=== PATIENT | female | born 1955 | race Asian ===

== ENCOUNTER 2017-02-18 12:58 | Emergency (ER) | payer OTHER ==
[~2017-02-18] VITALS: Ht 160 cm; Wt 69.0 kg
[2017-02-18 13:04] VITALS: BP 106/70
[2017-02-18 13:54] LABS: MEAN CORPUSCULAR HEMOGLOBIN 30.6 pg (27.0-34.8); MEAN CORPUSCULAR HGB CONC 33.7 g/dL (32.4-35.8); MEAN CORPUSCULAR VOLUME 90.8 fL (80-100); MEAN PLATELET VOLUME 7.2 fL (7.4-10.4); PLATELET COUNT 221 x10^3/uL (130-400); RED BLOOD COUNT 3.88 x10^6/uL (3.82-5.3); RED CELL DISTRIBUTION WIDTH 14.9 % (9.6-15.2)
[2017-02-18] MEDS ORDERED: ONDANSETRON ODT 4 MG PO ONE (14:00)
[2017-02-18 14:04] LABS: ALBUMIN 3.6 g/dL (3.4-5.0); ANION GAP 9 mmol/L (5-15); CALCIUM 8.3 mg/dL (8.5-10.1); CHLORIDE 103 mmol/L (98-107); CREATININE 0.67 mg/dL (0.55-1.02)
[2017-02-18 14:25] LABS: MD YES
[2017-02-18 14:26] LABS: BAND#(MANUAL) 0.78 x10^3/uL; BANDS%(MANUAL) 8 % (0-7); LYMPH#(MANUAL) 0.59 x10^3/uL (1-3.4); LYMPHS% (MANUAL) 6 % (22-44); MONOS% (MANUAL) 1 % (2-9); SEG#(MANUAL) 8.33 x10^3/uL (1.8-6.8); SEGS% (MANUAL) 85 % (42-75)
[2017-02-18 14:27] LABS: <PLATELET ESTIMATE> ADEQUATE; <PLT MORPHOLOGY> NORMAL PLT MORPH; <RBC MORPHOLOGY> NORMAL
[2017-02-18] MEDS ORDERED: CEFAZOLIN 1,000 MG ONE (15:48)
[2017-02-18] MEDS ORDERED: LIDOCAINE 1%, 10ML ONE (15:48)
[2017-02-18] MEDS ORDERED: SULFAMETH./TRIMETHOPRIM DS 800MG/160MG TABLET ONE (15:49)
[2017-02-18] MEDS ORDERED: IBUPROFEN 200 MG TABLET ONE (15:49)
[2017-02-18] MEDS ORDERED: ONDANSETRON ODT 4 MG ONE (15:49)
[2017-02-18] MEDS ORDERED: SULFAMETH./TRIMETHOPRIM DS 800MG/160MG TABLET PO ONE (16:00)
[2017-02-18] MEDS ORDERED: CEFAZOLIN 1,000 MG IM ONE (16:00)
[2017-02-18] MEDS ORDERED: IBUPROFEN 200 MG TABLET PO ONE (16:00)
== END 2017-02-18 16:43 | disposition home or self-care (01) ==
LOC: ED 16:41
DX: L03.116 Cellulitis of left lower limb (principal)
CPT/HCPCS: 36415; 73590; 80048; 82040; 85025; 93971; 96372; 99285; J0690; Q0162

== ENCOUNTER 2017-02-20 20:51 | Inpatient (IN) | payer OTHER ==
[~2017-02-20] VITALS: Ht 157.5 cm; Wt 62.1 kg
[2017-02-20] MEDS ORDERED: KETOROLAC 30 MG/1 ML ONE (21:48)
[2017-02-20] MEDS ORDERED: ONDANSETRON 2MG/ML, 2ML ONE (21:48)
[2017-02-20] MEDS ORDERED: SODIUM CHLORIDE 0.9% 1,000ML IVBOLUS ONE (22:00)
[2017-02-20] MEDS ORDERED: AMPICILLIN/SULBACTAM 3 GM in SODIUM CHLORIDE 0.9% 100 ML IV ONE (22:00)
[2017-02-20] MEDS ORDERED: KETOROLAC 30 MG/1 ML IVPush ONE (22:00)
[2017-02-20] MEDS ORDERED: SODIUM CHLORIDE FLUSH 10ML SYR IVF ONE (22:00)
[2017-02-20] MEDS ORDERED: ONDANSETRON 2MG/ML, 2ML IVPush ONE (22:00)
[2017-02-20 22:12] LABS: BASOPHILS # (AUTO) 0.02 x10^3/uL (0-0.1); BASOPHILS % (AUTO) 0 % (0-1); EOSINOPHILS % (AUTO) 0 % (1-7); LYMPHOCYTES # (AUTO) 1.05 x10^3/uL (1-3.4); LYMPHOCYTES % (AUTO) 7 % (22-44); MD NO; MEAN CORPUSCULAR HEMOGLOBIN 30.4 pg (27.0-34.8); MEAN CORPUSCULAR HGB CONC 33.5 g/dL (32.4-35.8); MEAN CORPUSCULAR VOLUME 90.8 fL (80-100); MEAN PLATELET VOLUME 7.2 fL (7.4-10.4); MONOCYTES % (AUTO) 3 % (2-9); NEUTROPHILS # (AUTO) 12.93 x10^3/uL (1.8-6.8); NEUTROPHILS % (AUTO) 90 % (42-75); PLATELET COUNT 202 x10^3/uL (130-400); RED BLOOD COUNT 3.85 x10^6/uL (3.82-5.3); RED CELL DISTRIBUTION WIDTH 15.5 % (9.6-15.2)
[2017-02-20 22:19] LABS: INTERNATIONAL NORMALIZED RATIO 0.94 (0.93-1.1); PROTHROMBIN TIME 9.8 Seconds (9.6-11.5)
[2017-02-20 22:25] LABS: ALBUMIN 2.3 g/dL (3.4-5.0); ANION GAP 10 mmol/L (5-15); CALCIUM 8.1 mg/dL (8.5-10.1); CHLORIDE 98 mmol/L (98-107)
[2017-02-20 22:28] LABS: ALANINE AMINOTRANSFERASE 21 U/L (12-78); ALKALINE PHOSPHATASE 66 U/L (45-117); BILIRUBIN,TOTAL 0.9 mg/dL (0.2-1.0); CREATININE 0.69 mg/dL (0.55-1.02); TOTAL PROTEIN 6.9 g/dL (6.4-8.2)
[2017-02-21] MEDS ORDERED: DOCUSATE 100 MG CAPSULE PO PRN
[2017-02-21] MEDS ORDERED: hydrALAzine 20 MG/ML, 1ML IVPush PRN
[2017-02-21] MEDS ORDERED: TEMAZEPAM 15 MG CAPSULE PO PRN
[2017-02-21] MEDS: SODIUM CHLORIDE 0.9% 1,000 ML IV SCH ×3 (01:26→19:59)
[2017-02-21] MEDS: ACETAMINOPHEN 325 MG TABLET PO PRN ×2 (01:31→19:53)
[2017-02-21 01:38] VITALS: BP 92/54
[2017-02-21] MEDS: ENOXAPARIN 40 MG/0.4 ML SQ SCH (01:50)
[2017-02-21 02:39] LABS: RAPID INFLUENZA A Negative (Negative); RAPID INFLUENZA B Negative (Negative)
[2017-02-21 05:14] LABS: MEAN CORPUSCULAR HEMOGLOBIN 30.8 pg (27.0-34.8); MEAN CORPUSCULAR HGB CONC 33.4 g/dL (32.4-35.8); MEAN CORPUSCULAR VOLUME 92.2 fL (80-100); MEAN PLATELET VOLUME 7.6 fL (7.4-10.4); PLATELET COUNT 186 x10^3/uL (130-400); RED BLOOD COUNT 3.42 x10^6/uL (3.82-5.3); RED CELL DISTRIBUTION WIDTH 15.3 % (9.6-15.2)
[2017-02-21 05:18] LABS: ANION GAP 7 mmol/L (5-15); CALCIUM 7.5 mg/dL (8.5-10.1); CHLORIDE 103 mmol/L (98-107)
[2017-02-21 05:19] LABS: CREATININE 0.81 mg/dL (0.55-1.02)
[2017-02-21 05:40] LABS: BASOPHILS # (AUTO) 0.01 x10^3/uL (0-0.1); BASOPHILS % (AUTO) 0 % (0-1); EOSINOPHILS # (AUTO) 0.02 x10^3/uL (0-0.4); EOSINOPHILS % (AUTO) 0 % (1-7); LYMPHOCYTES # (AUTO) 1.02 x10^3/uL (1-3.4); LYMPHOCYTES % (AUTO) 9 % (22-44); MD SCAN; MONOCYTES # (AUTO) 0.39 x10^3/uL (0.2-0.8); MONOCYTES % (AUTO) 3 % (2-9); NEUTROPHILS # (AUTO) 10.57 x10^3/uL (1.8-6.8); NEUTROPHILS % (AUTO) 88 % (42-75)
[2017-02-21] MEDS: AMPICILLIN/SULBACTAM 3 GM in SODIUM CHLORIDE 0.9% 100 ML IV SCH ×3 (06:16→22:55)
[2017-02-21] MEDS: KETOROLAC 30 MG/1 ML IVPush PRN ×2 (06:22→23:01)
[2017-02-21 09:14] VITALS: BP 92/59
[2017-02-21 13:21] VITALS: BP 94/60
[2017-02-21] MEDS ORDERED: MAGNESIUM HYDROXIDE 8%, 30ML UDC ONE (15:46)
[2017-02-21] MEDS: MAGNESIUM HYDROXIDE 8%, 30ML UDC PO PRN (15:49)
[2017-02-21] MEDS: ONDANSETRON ODT 4 MG PO PRN (16:30)
[2017-02-21 19:00] VITALS: BP 112/67
[2017-02-22] MEDS: SODIUM CHLORIDE 0.9% 1,000 ML IV SCH ×2 (00:17→05:04)
[2017-02-22] MEDS: ENOXAPARIN 40 MG/0.4 ML SQ SCH (00:59)
[2017-02-22 02:17] VITALS: BP 97/62
[2017-02-22] MEDS: KETOROLAC 30 MG/1 ML IVPush PRN ×2 (05:09→21:27)
[2017-02-22 05:28] LABS: CALCIUM 7.2 mg/dL (8.5-10.1); CHLORIDE 104 mmol/L (98-107)
[2017-02-22 05:31] LABS: ANION GAP 7 mmol/L (5-15); CREATININE 0.52 mg/dL (0.55-1.02)
[2017-02-22 05:35] LABS: MEAN CORPUSCULAR HEMOGLOBIN 30.9 pg (27.0-34.8); MEAN CORPUSCULAR HGB CONC 34.1 g/dL (32.4-35.8); MEAN CORPUSCULAR VOLUME 90.4 fL (80-100); MEAN PLATELET VOLUME 7.7 fL (7.4-10.4); PLATELET COUNT 167 x10^3/uL (130-400); RED BLOOD COUNT 3.21 x10^6/uL (3.82-5.3); RED CELL DISTRIBUTION WIDTH 15.3 % (9.6-15.2)
[2017-02-22 06:30] LABS: BASOPHILS # (AUTO) 0.01 x10^3/uL (0-0.1); BASOPHILS % (AUTO) 0 % (0-1); EOSINOPHILS # (AUTO) 0.09 x10^3/uL (0-0.4); EOSINOPHILS % (AUTO) 1 % (1-7); LYMPHOCYTES # (AUTO) 1.35 x10^3/uL (1-3.4); LYMPHOCYTES % (AUTO) 14 % (22-44); MD SCAN; MONOCYTES # (AUTO) 0.56 x10^3/uL (0.2-0.8); MONOCYTES % (AUTO) 6 % (2-9); NEUTROPHILS # (AUTO) 7.49 x10^3/uL (1.8-6.8); NEUTROPHILS % (AUTO) 79 % (42-75)
[2017-02-22] MEDS: AMPICILLIN/SULBACTAM 3 GM in SODIUM CHLORIDE 0.9% 100 ML IV SCH ×3 (07:35→22:23)
[2017-02-22 08:45] VITALS: BP 95/60
[2017-02-22] MEDS: ONDANSETRON ODT 4 MG PO PRN (10:18)
[2017-02-22] MEDS ORDERED: BISACODYL 10 MG SUPP PR ONE (11:00)
[2017-02-22] MEDS: DOCUSATE 100 MG CAPSULE PO SCH ×2 (12:31→20:16)
[2017-02-22 14:09] VITALS: BP 121/76
[2017-02-22 22:15] VITALS: BP 96/60
[2017-02-22] MEDS: ACETAMINOPHEN 325 MG TABLET PO PRN (22:24)
[2017-02-23 03:45] VITALS: BP 129/75
[2017-02-23 04:56] LABS: ALANINE AMINOTRANSFERASE 21 U/L (12-78); ANION GAP 7 mmol/L (5-15); CALCIUM 7.1 mg/dL (8.5-10.1); CHLORIDE 102 mmol/L (98-107)
[2017-02-23 04:58] LABS: ALKALINE PHOSPHATASE 128 U/L (45-117); BILIRUBIN,TOTAL 1.3 mg/dL (0.2-1.0); CREATININE 0.57 mg/dL (0.55-1.02); TOTAL PROTEIN 6.4 g/dL (6.4-8.2)
[2017-02-23 05:00] LABS: BASOPHILS # (AUTO) 0.03 x10^3/uL (0-0.1); BASOPHILS % (AUTO) 0 % (0-1); EOSINOPHILS # (AUTO) 0.09 x10^3/uL (0-0.4); EOSINOPHILS % (AUTO) 1 % (1-7); LYMPHOCYTES # (AUTO) 1.48 x10^3/uL (1-3.4); LYMPHOCYTES % (AUTO) 15 % (22-44); MD NO; MEAN CORPUSCULAR HEMOGLOBIN 29.9 pg (27.0-34.8); MEAN CORPUSCULAR HGB CONC 33.5 g/dL (32.4-35.8); MEAN CORPUSCULAR VOLUME 89.3 fL (80-100); MEAN PLATELET VOLUME 7.7 fL (7.4-10.4); MONOCYTES # (AUTO) 0.73 x10^3/uL (0.2-0.8); MONOCYTES % (AUTO) 8 % (2-9); NEUTROPHILS # (AUTO) 7.23 x10^3/uL (1.8-6.8); NEUTROPHILS % (AUTO) 76 % (42-75); PLATELET COUNT 219 x10^3/uL (130-400); RED BLOOD COUNT 3.58 x10^6/uL (3.82-5.3); RED CELL DISTRIBUTION WIDTH 15.3 % (9.6-15.2)
[2017-02-23] MEDS: ENOXAPARIN 40 MG/0.4 ML SQ SCH (05:35)
[2017-02-23] MEDS: SODIUM CHLORIDE 0.9% 1,000 ML IV SCH (05:35)
[2017-02-23] MEDS: AMPICILLIN/SULBACTAM 3 GM in SODIUM CHLORIDE 0.9% 100 ML IV SCH ×3 (06:27→22:32)
[2017-02-23 07:06] VITALS: BP 130/74
[2017-02-23] MEDS: DOCUSATE 100 MG CAPSULE PO SCH ×2 (11:00→21:00)
[2017-02-23] MEDS: BISACODYL 10 MG SUPP PR PRN (11:08)
[2017-02-23] MEDS: ACETAMINOPHEN 325 MG TABLET PO PRN (11:14)
[2017-02-23] MEDS: KETOROLAC 30 MG/1 ML IVPush PRN ×2 (11:14→21:13)
[2017-02-23 13:46] VITALS: BP 105/65
[2017-02-23 20:45] VITALS: BP 116/76
[2017-02-23] MEDS: ONDANSETRON 2MG/ML, 2ML IVPush PRN (21:09)
[2017-02-23] MEDS: SODIUM CHLORIDE FLUSH 10ML SYR IVF SCH (21:13)
[2017-02-24] MEDS: ONDANSETRON 2MG/ML, 2ML IVPush PRN (01:09)
[2017-02-24 04:16] VITALS: BP 119/72
[2017-02-24] MEDS: ENOXAPARIN 40 MG/0.4 ML SQ SCH (06:07)
[2017-02-24] MEDS: AMPICILLIN/SULBACTAM 3 GM in SODIUM CHLORIDE 0.9% 100 ML IV SCH ×3 (06:07→19:55)
[2017-02-24 06:51] VITALS: BP 110/61
[2017-02-24] MEDS: ACETAMINOPHEN 325 MG TABLET PO PRN ×2 (08:45→18:40)
[2017-02-24] MEDS: KETOROLAC 30 MG/1 ML IVPush PRN ×2 (08:45→19:12)
[2017-02-24] MEDS: DOCUSATE 100 MG CAPSULE PO SCH ×2 (08:45→21:00)
[2017-02-24] MEDS: SODIUM CHLORIDE FLUSH 10ML SYR IVF SCH ×2 (08:46→19:10)
[2017-02-24] MEDS ORDERED: AMOX1TAB64 PO (11:51)
[2017-02-24] MEDS ORDERED: IBUP-1223 PO (11:51)
[2017-02-24 13:42] VITALS: BP 127/82
[2017-02-24 17:27] VITALS: BP 133/80
[2017-02-24 23:41] LABS: MICROSCOPIC NOT IND
[2017-02-24 23:45] LABS: CULTURE INDICATED? NO
[2017-02-25 01:37] VITALS: BP 98/63
[2017-02-25] MEDS: AMPICILLIN/SULBACTAM 3 GM in SODIUM CHLORIDE 0.9% 100 ML IV SCH ×3 (03:40→22:56)
[2017-02-25] MEDS: KETOROLAC 30 MG/1 ML IVPush PRN ×3 (03:40→18:03)
[2017-02-25] MEDS: ENOXAPARIN 40 MG/0.4 ML SQ SCH (03:50)
[2017-02-25 07:12] VITALS: BP 120/72
[2017-02-25 07:46] LABS: MEAN CORPUSCULAR HEMOGLOBIN 30.1 pg (27.0-34.8); MEAN CORPUSCULAR HGB CONC 33.1 g/dL (32.4-35.8); MEAN CORPUSCULAR VOLUME 90.9 fL (80-100); MEAN PLATELET VOLUME 7.1 fL (7.4-10.4); PLATELET COUNT 336 x10^3/uL (130-400); RED BLOOD COUNT 3.47 x10^6/uL (3.82-5.3); RED CELL DISTRIBUTION WIDTH 15.9 % (9.6-15.2)
[2017-02-25 07:59] LABS: ANION GAP 6 mmol/L (5-15); CALCIUM 7.4 mg/dL (8.5-10.1); CHLORIDE 102 mmol/L (98-107); CREATININE 0.43 mg/dL (0.55-1.02)
[2017-02-25 08:03] LABS: BASOPHILS # (AUTO) 0.02 x10^3/uL (0-0.1); BASOPHILS % (AUTO) 0 % (0-1); EOSINOPHILS # (AUTO) 0.29 x10^3/uL (0-0.4); EOSINOPHILS % (AUTO) 2 % (1-7); LYMPHOCYTES # (AUTO) 1.43 x10^3/uL (1-3.4); LYMPHOCYTES % (AUTO) 11 % (22-44); MD SCAN; MONOCYTES % (AUTO) 5 % (2-9); NEUTROPHILS # (AUTO) 10.61 x10^3/uL (1.8-6.8); NEUTROPHILS % (AUTO) 82 % (42-75)
[2017-02-25] MEDS: SODIUM CHLORIDE FLUSH 10ML SYR IVF SCH ×2 (09:00→20:47)
[2017-02-25] MEDS: DOCUSATE 100 MG CAPSULE PO SCH ×2 (09:57→20:48)
[2017-02-25] MEDS: MAGNESIUM HYDROXIDE 8%, 30ML UDC PO PRN (10:00)
[2017-02-25] MEDS: ONDANSETRON 2MG/ML, 2ML IVPush PRN (10:04)
[2017-02-25] MEDS ORDERED: POTASSIUM CHLORIDE 20 MEQ in SODIUM CHLORIDE 0.9% 250 ML IV ONE (12:30)
[2017-02-25] MEDS ORDERED: VANCOMYCIN PER PHARMACY MC PRN (12:30)
[2017-02-25] MEDS ORDERED: MORPHINE SULFATE 4 MG/ML, 1ML IVPush PRN (12:30)
[2017-02-25 12:31] VITALS: BP 131/80
[2017-02-25] MEDS ORDERED: PHARMACOKINETIC CONSULTATION MC ONE (13:00)
[2017-02-25] MEDS ORDERED: PHARMACOKINETIC MONITORING MC PRN (13:00)
[2017-02-25] MEDS: BISACODYL 10 MG SUPP PR PRN (14:53)
[2017-02-25] MEDS: HYDROcodone/APAP 5/325 TABLET PO PRN ×2 (14:56→20:46)
[2017-02-25] MEDS: VANCOMYCIN 1,800 MG in SODIUM CHLORIDE 0.9% 250 ML IV SCH (16:20)
[2017-02-25 19:33] VITALS: BP 105/64
[2017-02-26] MEDS: HYDROcodone/APAP 5/325 TABLET PO PRN ×4 (01:01→18:39)
[2017-02-26 02:37] VITALS: BP 105/65
[2017-02-26] MEDS: VANCOMYCIN 1,800 MG in SODIUM CHLORIDE 0.9% 250 ML IV SCH ×2 (04:07→17:31)
[2017-02-26] MEDS: ENOXAPARIN 40 MG/0.4 ML SQ SCH (04:07)
[2017-02-26 06:03] LABS: BASOPHILS # (AUTO) 0.02 x10^3/uL (0-0.1); BASOPHILS % (AUTO) 0 % (0-1); EOSINOPHILS # (AUTO) 0.15 x10^3/uL (0-0.4); EOSINOPHILS % (AUTO) 1 % (1-7); LYMPHOCYTES % (AUTO) 12 % (22-44); MD NO; MEAN CORPUSCULAR HEMOGLOBIN 30.4 pg (27.0-34.8); MEAN CORPUSCULAR HGB CONC 33.6 g/dL (32.4-35.8); MEAN CORPUSCULAR VOLUME 90.6 fL (80-100); MEAN PLATELET VOLUME 7.5 fL (7.4-10.4); MONOCYTES % (AUTO) 7 % (2-9); NEUTROPHILS # (AUTO) 8.93 x10^3/uL (1.8-6.8); NEUTROPHILS % (AUTO) 79 % (42-75); PLATELET COUNT 381 x10^3/uL (130-400); RED BLOOD COUNT 3.24 x10^6/uL (3.82-5.3)
[2017-02-26 06:13] LABS: CHLORIDE 102 mmol/L (98-107)
[2017-02-26 06:29] LABS: ALANINE AMINOTRANSFERASE 17 U/L (12-78); ALBUMIN 1.8 g/dL (3.4-5.0); ALKALINE PHOSPHATASE 101 U/L (45-117); ANION GAP 9 mmol/L (5-15); BILIRUBIN,TOTAL 0.6 mg/dL (0.2-1.0); CALCIUM 7.2 mg/dL (8.5-10.1); CREATININE 0.41 mg/dL (0.55-1.02); TOTAL PROTEIN 6.3 g/dL (6.4-8.2)
[2017-02-26 07:18] VITALS: BP 143/86
[2017-02-26] MEDS: AMPICILLIN/SULBACTAM 3 GM in SODIUM CHLORIDE 0.9% 100 ML IV SCH ×3 (07:23→23:12)
[2017-02-26] MEDS: SODIUM CHLORIDE FLUSH 10ML SYR IVF SCH ×2 (09:00→20:19)
[2017-02-26] MEDS: DOCUSATE 100 MG CAPSULE PO SCH ×2 (09:43→20:19)
[2017-02-26] MEDS ORDERED: GADOBUTROL 10 MMOL/10 ML PFS ONE (11:47)
[2017-02-26 12:41] VITALS: BP 124/77
[2017-02-26] MEDS: CLINDAMYCIN PMX 600MG/50ML 50 ML IV SCH ×2 (13:55→21:58)
[2017-02-26 20:42] VITALS: BP 108/62
[2017-02-27 02:39] VITALS: BP 111/66
[2017-02-27 03:37] LABS: BASOPHILS # (AUTO) 0.01 x10^3/uL (0-0.1); BASOPHILS % (AUTO) 0 % (0-1); EOSINOPHILS # (AUTO) 0.09 x10^3/uL (0-0.4); EOSINOPHILS % (AUTO) 1 % (1-7); LYMPHOCYTES # (AUTO) 1.21 x10^3/uL (1-3.4); LYMPHOCYTES % (AUTO) 12 % (22-44); MD NO; MEAN CORPUSCULAR HEMOGLOBIN 30.4 pg (27.0-34.8); MEAN CORPUSCULAR HGB CONC 33.6 g/dL (32.4-35.8); MEAN CORPUSCULAR VOLUME 90.3 fL (80-100); MEAN PLATELET VOLUME 7.2 fL (7.4-10.4); MONOCYTES # (AUTO) 0.67 x10^3/uL (0.2-0.8); MONOCYTES % (AUTO) 7 % (2-9); NEUTROPHILS # (AUTO) 7.91 x10^3/uL (1.8-6.8); NEUTROPHILS % (AUTO) 80 % (42-75); PLATELET COUNT 422 x10^3/uL (130-400); RED BLOOD COUNT 3.24 x10^6/uL (3.82-5.3); RED CELL DISTRIBUTION WIDTH 15.9 % (9.6-15.2)
[2017-02-27 03:39] LABS: ANION GAP 6 mmol/L (5-15); CALCIUM 7.6 mg/dL (8.5-10.1); CHLORIDE 100 mmol/L (98-107); CREATININE 0.39 mg/dL (0.55-1.02)
[2017-02-27 03:41] LABS: VANCOMYCIN,TROUGH 24.6 mcg/mL (5.0-10.0)
[2017-02-27] MEDS: VANCOMYCIN 1,800 MG in SODIUM CHLORIDE 0.9% 250 ML IV SCH (03:59)
[2017-02-27] MEDS: CLINDAMYCIN PMX 600MG/50ML 50 ML IV SCH (05:35)
[2017-02-27] MEDS: ENOXAPARIN 40 MG/0.4 ML SQ SCH (05:36)
[2017-02-27] MEDS: AMPICILLIN/SULBACTAM 3 GM in SODIUM CHLORIDE 0.9% 100 ML IV SCH ×2 (06:29→15:41)
[2017-02-27 07:17] VITALS: BP 125/79
[2017-02-27] MEDS: DOCUSATE 100 MG CAPSULE PO SCH ×2 (08:50→21:18)
[2017-02-27] MEDS: SODIUM CHLORIDE FLUSH 10ML SYR IVF SCH ×3 (08:50→21:19)
[2017-02-27] MEDS: HYDROcodone/APAP 5/325 TABLET PO PRN ×4 (08:52→21:18)
[2017-02-27 13:22] VITALS: BP 117/77
[2017-02-27] MEDS ORDERED: DAPTOMYCIN 400 MG in SODIUM CHLORIDE 0.9% 100 ML IV SCH (16:30)
[2017-02-27] MEDS ORDERED: PNEUMOC 13-VALENT VACC, 0.5 ML IM-VACC ONE (16:30)
[2017-02-27] MEDS ORDERED: VANCOMYCIN 1,800 MG in SODIUM CHLORIDE 0.9% 250 ML IV SCH (17:00)
[2017-02-27] MEDS: CLINDAMYCIN PMX 900MG/50ML 50 ML IV SCH (17:10)
[2017-02-27 18:38] VITALS: BP 100/62
[2017-02-28 01:29] VITALS: BP 111/72
[2017-02-28] MEDS: CLINDAMYCIN PMX 900MG/50ML 50 ML IV SCH ×2 (01:32→08:58)
[2017-02-28 05:43] LABS: HCT (SEDRATE) 29.8 % (34.6-47.8)
[2017-02-28] MEDS: ENOXAPARIN 40 MG/0.4 ML SQ SCH (06:18)
[2017-02-28 06:55] VITALS: BP 122/70
[2017-02-28] MEDS: SODIUM CHLORIDE FLUSH 10ML SYR IVF SCH ×2 (08:58→21:45)
[2017-02-28] MEDS: DOCUSATE 100 MG CAPSULE PO SCH ×2 (08:58→21:44)
[2017-02-28] MEDS: HYDROcodone/APAP 5/325 TABLET PO PRN ×2 (08:59→19:42)
[2017-02-28] MEDS: CEFTAROLINE 600 MG in SODIUM CHLORIDE 0.9% 100 ML IV SCH ×2 (10:18→21:44)
[2017-02-28] MEDS: ACETAMINOPHEN 325 MG TABLET PO PRN (15:58)
[2017-02-28 19:38] VITALS: BP 120/76
[2017-02-28] MEDS: ONDANSETRON 2MG/ML, 2ML IVPush PRN (22:08)
[2017-03-01] MEDS: HYDROcodone/APAP 5/325 TABLET PO PRN ×2 (02:47→20:07)
[2017-03-01 02:50] VITALS: BP 159/75
[2017-03-01] MEDS: ENOXAPARIN 40 MG/0.4 ML SQ SCH (05:05)
[2017-03-01 05:36] LABS: CHLORIDE 100 mmol/L (98-107)
[2017-03-01 05:40] LABS: ANION GAP 6 mmol/L (5-15); CALCIUM 7.7 mg/dL (8.5-10.1)
[2017-03-01 05:43] LABS: BASOPHILS # (AUTO) 0.02 x10^3/uL (0-0.1); BASOPHILS % (AUTO) 0 % (0-1); EOSINOPHILS # (AUTO) 0.11 x10^3/uL (0-0.4); EOSINOPHILS % (AUTO) 1 % (1-7); LYMPHOCYTES # (AUTO) 0.73 x10^3/uL (1-3.4); LYMPHOCYTES % (AUTO) 10 % (22-44); MD NO; MEAN CORPUSCULAR HEMOGLOBIN 30.6 pg (27.0-34.8); MEAN CORPUSCULAR HGB CONC 33.5 g/dL (32.4-35.8); MEAN CORPUSCULAR VOLUME 91.5 fL (80-100); MEAN PLATELET VOLUME 7.3 fL (7.4-10.4); MONOCYTES % (AUTO) 8 % (2-9); NEUTROPHILS # (AUTO) 6.15 x10^3/uL (1.8-6.8); NEUTROPHILS % (AUTO) 81 % (42-75); PLATELET COUNT 434 x10^3/uL (130-400); RED BLOOD COUNT 3.16 x10^6/uL (3.82-5.3); RED CELL DISTRIBUTION WIDTH 15.8 % (9.6-15.2)
[2017-03-01 09:31] VITALS: BP 120/70
[2017-03-01] MEDS: DOCUSATE 100 MG CAPSULE PO SCH ×2 (10:38→20:07)
[2017-03-01] MEDS: ACETAMINOPHEN 325 MG TABLET PO PRN ×2 (10:38→16:34)
[2017-03-01] MEDS: CEFTAROLINE 600 MG in SODIUM CHLORIDE 0.9% 100 ML IV SCH ×2 (10:38→21:58)
[2017-03-01] MEDS: SODIUM CHLORIDE FLUSH 10ML SYR IVF SCH ×2 (10:39→20:08)
[2017-03-01 14:13] VITALS: BP 126/74
[2017-03-01] MEDS: BISACODYL 10 MG SUPP PR PRN (16:34)
[2017-03-01 19:23] VITALS: BP 99/64
[2017-03-02 02:46] VITALS: BP 127/76
[2017-03-02] MEDS: ACETAMINOPHEN 325 MG TABLET PO PRN ×2 (02:54→14:54)
[2017-03-02] MEDS: ENOXAPARIN 40 MG/0.4 ML SQ SCH (04:19)
[2017-03-02 07:00] VITALS: BP 117/76
[2017-03-02] MEDS: DOCUSATE 100 MG CAPSULE PO SCH ×2 (08:20→20:15)
[2017-03-02] MEDS: SODIUM CHLORIDE FLUSH 10ML SYR IVF SCH ×2 (08:20→20:15)
[2017-03-02] MEDS: HYDROcodone/APAP 5/325 TABLET PO PRN (08:20)
[2017-03-02] MEDS: CEFTAROLINE 600 MG in SODIUM CHLORIDE 0.9% 100 ML IV SCH ×2 (10:03→21:56)
[2017-03-02 11:29] LABS: RAPID INFLUENZA A Negative (Negative); RAPID INFLUENZA B Negative (Negative)
[2017-03-02 14:15] VITALS: BP 136/75
[2017-03-02 19:40] VITALS: BP 133/80
[2017-03-03 03:38] VITALS: BP 129/73
[2017-03-03] MEDS: ENOXAPARIN 40 MG/0.4 ML SQ SCH (05:11)
[2017-03-03 05:56] LABS: BASOPHILS # (AUTO) 0.02 x10^3/uL (0-0.1); BASOPHILS % (AUTO) 0 % (0-1); EOSINOPHILS # (AUTO) 0.07 x10^3/uL (0-0.4); EOSINOPHILS % (AUTO) 1 % (1-7); LYMPHOCYTES # (AUTO) 0.73 x10^3/uL (1-3.4); LYMPHOCYTES % (AUTO) 13 % (22-44); MD NO; MEAN CORPUSCULAR HEMOGLOBIN 30.7 pg (27.0-34.8); MEAN CORPUSCULAR HGB CONC 33.6 g/dL (32.4-35.8); MEAN CORPUSCULAR VOLUME 91.3 fL (80-100); MONOCYTES # (AUTO) 0.55 x10^3/uL (0.2-0.8); MONOCYTES % (AUTO) 10 % (2-9); NEUTROPHILS # (AUTO) 4.33 x10^3/uL (1.8-6.8); NEUTROPHILS % (AUTO) 76 % (42-75); PLATELET COUNT 513 x10^3/uL (130-400); RED BLOOD COUNT 3.54 x10^6/uL (3.82-5.3)
[2017-03-03 06:09] LABS: ANION GAP 8 mmol/L (5-15); CALCIUM 8.1 mg/dL (8.5-10.1); CHLORIDE 98 mmol/L (98-107)
[2017-03-03 06:18] LABS: ALANINE AMINOTRANSFERASE 14 U/L (12-78); ALKALINE PHOSPHATASE 78 U/L (45-117); BILIRUBIN,TOTAL 0.4 mg/dL (0.2-1.0); CREATININE 0.49 mg/dL (0.55-1.02); TOTAL PROTEIN 7.6 g/dL (6.4-8.2)
[2017-03-03 06:47] LABS: HCT (SEDRATE) 32.3 % (34.6-47.8)
[2017-03-03 06:57] VITALS: BP 126/72
[2017-03-03] MEDS: DOCUSATE 100 MG CAPSULE PO SCH ×2 (07:57→20:30)
[2017-03-03] MEDS: ACETAMINOPHEN 325 MG TABLET PO PRN ×2 (07:57→20:31)
[2017-03-03] MEDS: SODIUM CHLORIDE FLUSH 10ML SYR IVF SCH ×2 (07:57→20:34)
[2017-03-03] MEDS: CEFTAROLINE 600 MG in SODIUM CHLORIDE 0.9% 100 ML IV SCH ×2 (10:10→20:31)
[2017-03-03 14:35] VITALS: BP 134/80
[2017-03-03] MEDS: SODIUM CHLORIDE 0.9% 1,000 ML IV SCH (17:47)
[2017-03-03 18:18] LABS: ALBUMIN 2.1 g/dL (3.4-5.0); ANION GAP 7 mmol/L (5-15); CALCIUM 8.3 mg/dL (8.5-10.1); CHLORIDE 98 mmol/L (98-107); CREATININE 0.47 mg/dL (0.55-1.02)
[2017-03-03 18:54] VITALS: BP 140/81
[2017-03-04 02:46] VITALS: BP 123/77
[2017-03-04] MEDS: ENOXAPARIN 40 MG/0.4 ML SQ SCH (04:49)
[2017-03-04 05:27] LABS: BASOPHILS # (AUTO) 0.02 x10^3/uL (0-0.1); BASOPHILS % (AUTO) 0 % (0-1); EOSINOPHILS # (AUTO) 0.11 x10^3/uL (0-0.4); EOSINOPHILS % (AUTO) 2 % (1-7); LYMPHOCYTES # (AUTO) 1.06 x10^3/uL (1-3.4); LYMPHOCYTES % (AUTO) 20 % (22-44); MD NO; MEAN CORPUSCULAR HEMOGLOBIN 30.5 pg (27.0-34.8); MEAN CORPUSCULAR HGB CONC 33.1 g/dL (32.4-35.8); MEAN CORPUSCULAR VOLUME 92.1 fL (80-100); MEAN PLATELET VOLUME 6.9 fL (7.4-10.4); MONOCYTES # (AUTO) 0.66 x10^3/uL (0.2-0.8); MONOCYTES % (AUTO) 13 % (2-9); NEUTROPHILS # (AUTO) 3.35 x10^3/uL (1.8-6.8); NEUTROPHILS % (AUTO) 65 % (42-75); PLATELET COUNT 548 x10^3/uL (130-400); RED CELL DISTRIBUTION WIDTH 15.8 % (9.6-15.2)
[2017-03-04 05:38] LABS: CHLORIDE 101 mmol/L (98-107)
[2017-03-04 05:47] LABS: ANION GAP 8 mmol/L (5-15); CALCIUM 7.9 mg/dL (8.5-10.1); CREATININE 0.49 mg/dL (0.55-1.02)
[2017-03-04] MEDS: SODIUM CHLORIDE FLUSH 10ML SYR IVF SCH ×2 (07:10→20:45)
[2017-03-04 08:15] VITALS: BP 137/81
[2017-03-04] MEDS: DOCUSATE 100 MG CAPSULE PO SCH ×2 (08:45→20:45)
[2017-03-04] MEDS: SODIUM CHLORIDE 0.9% 1,000 ML IV SCH ×2 (08:46→20:44)
[2017-03-04] MEDS: HYDROcodone/APAP 5/325 TABLET PO PRN ×2 (09:14→20:44)
[2017-03-04] MEDS: CEFTAROLINE 600 MG in SODIUM CHLORIDE 0.9% 100 ML IV SCH (09:58)
[2017-03-04 12:38] VITALS: BP 127/79
[2017-03-04] MEDS ORDERED: CEFAZOLIN 2,000 MG in SODIUM CHLORIDE 0.9% 50 ML IVPB SCH (13:00)
[2017-03-04] MEDS: CEFAZOLIN 2,000 MG in SODIUM CHLORIDE 0.9% 50 ML IVPB SCH (16:19)
[2017-03-04 20:34] VITALS: BP 133/78
[2017-03-05] MEDS: CEFAZOLIN 2,000 MG in SODIUM CHLORIDE 0.9% 50 ML IVPB SCH ×3 (01:00→16:42)
[2017-03-05 01:17] VITALS: BP 126/72
[2017-03-05 05:06] LABS: BASOPHILS # (AUTO) 0.02 x10^3/uL (0-0.1); BASOPHILS % (AUTO) 0 % (0-1); EOSINOPHILS # (AUTO) 0.11 x10^3/uL (0-0.4); EOSINOPHILS % (AUTO) 2 % (1-7); LYMPHOCYTES # (AUTO) 1.16 x10^3/uL (1-3.4); LYMPHOCYTES % (AUTO) 21 % (22-44); MD NO; MEAN CORPUSCULAR HEMOGLOBIN 30.4 pg (27.0-34.8); MEAN CORPUSCULAR HGB CONC 33.4 g/dL (32.4-35.8); MEAN CORPUSCULAR VOLUME 90.9 fL (80-100); MEAN PLATELET VOLUME 6.7 fL (7.4-10.4); MONOCYTES # (AUTO) 0.49 x10^3/uL (0.2-0.8); MONOCYTES % (AUTO) 9 % (2-9); NEUTROPHILS # (AUTO) 3.89 x10^3/uL (1.8-6.8); NEUTROPHILS % (AUTO) 69 % (42-75); PLATELET COUNT 530 x10^3/uL (130-400); RED BLOOD COUNT 3.59 x10^6/uL (3.82-5.3); RED CELL DISTRIBUTION WIDTH 15.9 % (9.6-15.2)
[2017-03-05 05:17] LABS: ANION GAP 8 mmol/L (5-15); CALCIUM 8.1 mg/dL (8.5-10.1); CHLORIDE 102 mmol/L (98-107)
[2017-03-05 05:19] LABS: CREATININE 0.45 mg/dL (0.55-1.02)
[2017-03-05] MEDS: ENOXAPARIN 40 MG/0.4 ML SQ SCH (05:47)
[2017-03-05 08:04] VITALS: BP 133/76
[2017-03-05] MEDS: SODIUM CHLORIDE FLUSH 10ML SYR IVF SCH ×2 (08:15→20:39)
[2017-03-05] MEDS: DOCUSATE 100 MG CAPSULE PO SCH ×2 (08:15→20:39)
[2017-03-05] MEDS: HYDROcodone/APAP 5/325 TABLET PO PRN ×2 (08:22→14:26)
[2017-03-05] MEDS: SODIUM CHLORIDE 0.9% 1,000 ML IV SCH (08:22)
[2017-03-05 14:07] VITALS: BP 110/66
[2017-03-05 20:21] VITALS: BP 128/78
[2017-03-06] MEDS: CEFAZOLIN 2,000 MG in SODIUM CHLORIDE 0.9% 50 ML IVPB SCH ×2 (00:06→07:58)
[2017-03-06 01:47] VITALS: BP 125/64
[2017-03-06] MEDS: ENOXAPARIN 40 MG/0.4 ML SQ SCH (05:06)
[2017-03-06] MEDS: SODIUM CHLORIDE FLUSH 10ML SYR IVF SCH ×2 (07:58→20:26)
[2017-03-06] MEDS: SODIUM CHLORIDE 0.9% 1,000 ML IV SCH ×2 (07:58→23:13)
[2017-03-06] MEDS: DOCUSATE 100 MG CAPSULE PO SCH ×2 (07:58→20:26)
[2017-03-06 08:06] VITALS: BP 109/65
[2017-03-06] MEDS: DIPHENHYDRAMINE 25 MG CAPSULE PO PRN ×2 (08:08→20:20)
[2017-03-06] MEDS: CEPHALEXIN 500 MG CAPSULE PO SCH ×3 (10:24→22:10)
[2017-03-06 12:53] VITALS: BP 140/82
[2017-03-06] MEDS ORDERED: CEPH-368 PO (15:42)
[2017-03-06] MEDS: BISACODYL 10 MG SUPP PR PRN (17:30)
[2017-03-06 19:05] VITALS: BP 151/96
[2017-03-06] MEDS: HYDROcodone/APAP 5/325 TABLET PO PRN (22:10)
[2017-03-07] MEDS: CEPHALEXIN 500 MG CAPSULE PO SCH ×2 (03:49→09:43)
[2017-03-07 04:11] VITALS: BP 138/83
[2017-03-07] MEDS: ENOXAPARIN 40 MG/0.4 ML SQ SCH (04:56)
[2017-03-07 08:34] VITALS: BP 113/69
[2017-03-07] MEDS: DOCUSATE 100 MG CAPSULE PO SCH (09:00)
[2017-03-07] MEDS: SODIUM CHLORIDE FLUSH 10ML SYR IVF SCH (09:43)
[2017-03-07] MEDS: SODIUM CHLORIDE 0.9% 1,000 ML IV SCH (10:40)
== END 2017-03-07 14:50 | disposition home health service (06) | DRG 871 ==
LOC: ED 22:17 → EDIP 23:06 → 4NOR 02-21 00:25
PROVIDERS: ADMIT Internal Medicine; ATTEND Internal Medicine
DX: A41.9 Sepsis, unspecified organism (principal); E43 Unspecified severe protein-calorie malnutrition; E87.1 Hypo-osmolality and hyponatremia; L03.116 Cellulitis of left lower limb; D64.9 Anemia, unspecified; E66.9 Obesity, unspecified; E87.6 Hypokalemia; I73.9 Peripheral vascular disease, unspecified; K59.00 Constipation, unspecified; Z87.11 Personal history of peptic ulcer disease; Z68.25 Body mass index [BMI] 25.0-25.9, adult
CPT/HCPCS: 36415; 71045; 80048; 80053; 80202; 81003; 82040; 82550; 83605; 84145; 85025; 85610; 85651; 85730; 86140; 86480; 86704; 86706; 86803; 87040; 87070; 87205; 87340; 87400; 93922; 93970; 96361; 96365; 96375; A9585; J0295; J0690; J0712; J0878; J1650; J1885; J2405; J3370; J3480; Q0162; G0009; J7030; J7050; Q0163

== ENCOUNTER → 2017-03-14 | Outpatient (CLI) | payer OTHER ==
[~2017-03-14] MED LIST: AMOX1TAB64 PO; CEPH-368 PO; IBUP-1223 PO
== END | disposition home or self-care (01) ==
LOC: WOUND 09:00
PROVIDERS: ATTEND Family Medicine
DX: L97.321 Non-pressure chronic ulcer of left ankle limited to breakdown of skin (principal); E66.9 Obesity, unspecified; I73.9 Peripheral vascular disease, unspecified; Z68.25 Body mass index [BMI] 25.0-25.9, adult
CPT/HCPCS: 99215

== ENCOUNTER → 2017-03-21 | Outpatient (CLI) | payer OTHER | END | disposition home or self-care (01) | LOC: WOUND 09:00 | PROVIDERS: ATTEND Family Medicine | DX: L97.321 Non-pressure chronic ulcer of left ankle limited to breakdown of skin (principal); L97.311 Non-pressure chronic ulcer of right ankle limited to breakdown of skin; E66.9 Obesity, unspecified; I73.9 Peripheral vascular disease, unspecified; Z68.32 Body mass index [BMI] 32.0-32.9, adult | CPT/HCPCS: 97597; 99215 ==

== ENCOUNTER → 2017-03-28 | Outpatient (CLI) | payer OTHER | END | disposition home or self-care (01) | LOC: WOUND 09:15 | PROVIDERS: ATTEND Family Medicine | DX: L97.321 Non-pressure chronic ulcer of left ankle limited to breakdown of skin (principal); L97.311 Non-pressure chronic ulcer of right ankle limited to breakdown of skin; E66.9 Obesity, unspecified; I73.9 Peripheral vascular disease, unspecified; Z68.32 Body mass index [BMI] 32.0-32.9, adult | CPT/HCPCS: 99215 ==

== ENCOUNTER → 2017-04-07 | Outpatient (CLI) | payer OTHER | END | disposition home or self-care (01) | LOC: RAD 13:14 → EDSTATUS 14:00 | PROVIDERS: ATTEND Nurse Practitioner Family | DX: R22.42 Localized swelling, mass and lump, left lower limb (principal); M79.605 Pain in left leg ==

== ENCOUNTER → 2017-04-11 | Outpatient (CLI) | payer OTHER | END | disposition home or self-care (01) | LOC: WOUND 09:17 | PROVIDERS: ATTEND Family Medicine | DX: L97.321 Non-pressure chronic ulcer of left ankle limited to breakdown of skin (principal); E66.9 Obesity, unspecified; I73.9 Peripheral vascular disease, unspecified; Z68.32 Body mass index [BMI] 32.0-32.9, adult | CPT/HCPCS: 97597 ==

== ENCOUNTER → 2017-04-18 | Outpatient (CLI) | payer OTHER | END | disposition home or self-care (01) | LOC: WOUND 08:50 | PROVIDERS: ATTEND Family Medicine | DX: L97.321 Non-pressure chronic ulcer of left ankle limited to breakdown of skin (principal); L97.221 Non-pressure chronic ulcer of left calf limited to breakdown of skin; I73.9 Peripheral vascular disease, unspecified; E66.9 Obesity, unspecified; E87.1 Hypo-osmolality and hyponatremia; E87.6 Hypokalemia; Z68.32 Body mass index [BMI] 32.0-32.9, adult | CPT/HCPCS: 99214 ==

== ENCOUNTER 2019-12-23 20:33 | Inpatient (IN) | payer OTHER ==
[~2019-12-23] VITALS: Ht 160 cm; Wt 99.8 kg
[2019-12-23 22:52] LABS: ANION GAP 5 mmol/L (5-15); CALCIUM 8.7 mg/dL (8.5-10.1); CHLORIDE 104 mmol/L (98-107); CREATININE 0.89 mg/dL (0.55-1.02)
--- NOTE | 2019-12-23 22:54 | NUR ---
Pt comes in with complaints of a wound on her left lower leg/ankle area that has opened up. Per patient is she stated that it opened today. Stated she took tylenol this morning for pain but nothing else. 11/26. Patient had to be woken up to do assessment. Patient currently resting at this time, famliy at bedside.
[2019-12-23 22:59] LABS: BASOPHILS % (AUTO) 0 % (0-1); EOSINOPHILS % (AUTO) 1 % (1-7); LYMPHOCYTES % (AUTO) 11 % (22-44); MEAN CORPUSCULAR HGB CONC 33.2 g/dL (32.4-35.8); MEAN PLATELET VOLUME 7.1 fL (7.4-10.4); MONOCYTES % (AUTO) 3 % (2-9); NEUTROPHILS % (AUTO) 85 % (42-75); PLATELET COUNT 210 x10^3/uL (130-400); RED BLOOD COUNT 3.99 x10^6/uL (3.82-5.3); RED CELL DISTRIBUTION WIDTH 13.7 % (9.6-15.2)
[2019-12-23] MEDS ORDERED: SODIUM CHLORIDE FLUSH 10ML SYR IVF ONE (23:00)
[2019-12-23] MEDS ORDERED: MORPHINE SULFATE 4 MG/ML, 1ML IVPush PRN (23:00)
[2019-12-23] MEDS ORDERED: SODIUM CHLORIDE 0.9% 1,000ML IVBOLUS ONE (23:00)
[2019-12-23] MEDS ORDERED: VANCOMYCIN PER PHARMACY MC ONE (23:00)
[2019-12-23] MEDS ORDERED: ONDANSETRON 2MG/ML, 2ML IVPush ONE (23:00)
[2019-12-23] MEDS ORDERED: AMPICILLIN/SULBACTAM 3 GM in SODIUM CHLORIDE 0.9% 100 ML IV ONE (23:00)
[2019-12-23] MEDS ORDERED: ONDANSETRON 2MG/ML, 2ML ONE (23:21)
[2019-12-23] MEDS ORDERED: ACETAMINOPHEN 500 MG TABLET ONE (23:22)
[2019-12-23] MEDS ORDERED: MORPHINE SULFATE 4 MG/ML, 1ML ONE (23:22)
[2019-12-23] MEDS ORDERED: ACETAMINOPHEN 500 MG TABLET PO ONE (23:30)
[2019-12-23] MEDS ORDERED: VANCOMYCIN 1,500 MG in SODIUM CHLORIDE 0.9% 250 ML IV ONE (23:30)
[2019-12-23 23:44] LABS: MD SCAN
[2019-12-24] MEDS: HEPARIN 5,000 UNITS/ML, 1ML SQ SCH ×3 (01:00→17:39)
[2019-12-24] MEDS ORDERED: SODIUM CHLORIDE 0.9% 1,000 ML IV SCH (01:00)
[2019-12-24] MEDS ORDERED: ENALAPRILAT 1.25 MG/ML, 1ML IVPush PRN (01:00)
[2019-12-24] MEDS ORDERED: morphine SULFATE 10 MG/ML, 1ML IVPush PRN (01:00)
[2019-12-24] MEDS ORDERED: DOCUSATE 100 MG CAPSULE PO PRN (01:00)
[2019-12-24] MEDS ORDERED: ACET325T14 PO (02:21)
[2019-12-24] MEDS: CEFTAROLINE 600 MG in SODIUM CHLORIDE 0.9% 100 ML IV SCH ×2 (03:05→12:48)
[2019-12-24 03:18] VITALS: BP 113/68
[2019-12-24 07:03] VITALS: BP 113/66
[2019-12-24] MEDS: ACETAMINOPHEN 325 MG TABLET PO PRN (08:25)
[2019-12-24 12:41] VITALS: BP 93/55
[2019-12-24] MEDS: SODIUM CHLORIDE 0.9% 1,000 ML IV SCH ×2 (13:30→23:01)
[2019-12-24] MEDS ORDERED: PNEUMOCOCCAL 23 VACCINE IM-VACC ONE (16:30)
[2019-12-24 17:11] LABS: HCT (SEDRATE) 35.9 % (34.6-47.8)
[2019-12-24 17:43] VITALS: BP 103/66
[2019-12-24 18:57] VITALS: BP 106/67
[2019-12-25 00:34] VITALS: BP 104/71
[2019-12-25] MEDS: HEPARIN 5,000 UNITS/ML, 1ML SQ SCH ×3 (00:52→18:07)
[2019-12-25] MEDS: ACETAMINOPHEN 325 MG TABLET PO PRN (00:52)
[2019-12-25] MEDS: CEFTAROLINE 600 MG in SODIUM CHLORIDE 0.9% 100 ML IV SCH ×2 (00:53→13:07)
[2019-12-25 04:41] LABS: BASOPHILS % (AUTO) 0 % (0-1); EOSINOPHILS % (AUTO) 0 % (1-7); LYMPHOCYTES % (AUTO) 16 % (22-44); MEAN CORPUSCULAR HEMOGLOBIN 32.3 pg (27.0-34.8); MEAN CORPUSCULAR HGB CONC 33.4 g/dL (32.4-35.8); MEAN PLATELET VOLUME 7.5 fL (7.4-10.4); MONOCYTES % (AUTO) 7 % (2-9); NEUTROPHILS % (AUTO) 77 % (42-75); PLATELET COUNT 160 x10^3/uL (130-400); RED BLOOD COUNT 3.43 x10^6/uL (3.82-5.3); RED CELL DISTRIBUTION WIDTH 13.9 % (9.6-15.2)
[2019-12-25 04:43] LABS: MD NO
[2019-12-25 04:49] LABS: ANION GAP 4 mmol/L (5-15); CALCIUM 7.3 mg/dL (8.5-10.1); CHLORIDE 106 mmol/L (98-107); CREATININE 0.59 mg/dL (0.55-1.02)
[2019-12-25 05:26] LABS: FREE T4 (FREE THYROXINE) 1.11 ng/dL (0.76-1.46)
[2019-12-25] MEDS: SODIUM CHLORIDE 0.9% 1,000 ML IV SCH ×3 (07:00→23:00)
[2019-12-25 08:21] VITALS: BP 112/53
[2019-12-25] MEDS: KETOROLAC 30 MG/1 ML IVPush PRN ×2 (08:49→15:24)
[2019-12-25 14:21] VITALS: BP 96/59
[2019-12-25] MEDS: POTASSIUM CHLORIDE 20 MEQ TAB.ER.PRT PO SCH (18:07)
[2019-12-25 20:07] VITALS: BP 98/57
[2019-12-26 00:19] VITALS: BP 127/76
[2019-12-26] MEDS: CEFTAROLINE 600 MG in SODIUM CHLORIDE 0.9% 100 ML IV SCH ×2 (01:31→13:22)
[2019-12-26] MEDS: HEPARIN 5,000 UNITS/ML, 1ML SQ SCH ×3 (01:32→17:42)
[2019-12-26] MEDS: KETOROLAC 30 MG/1 ML IVPush PRN (01:39)
[2019-12-26] MEDS: SODIUM CHLORIDE 0.9% 1,000 ML IV SCH ×2 (07:49→15:53)
[2019-12-26] MEDS: POTASSIUM CHLORIDE 20 MEQ TAB.ER.PRT PO SCH ×2 (07:49→17:40)
[2019-12-26 08:22] VITALS: BP 143/77
[2019-12-26] MEDS: ACETAMINOPHEN 325 MG TABLET PO PRN (08:37)
[2019-12-26 10:11] LABS: ANION GAP 5 mmol/L (5-15); CALCIUM 7.6 mg/dL (8.5-10.1); CHLORIDE 109 mmol/L (98-107); CREATININE 0.58 mg/dL (0.55-1.02)
[2019-12-26 10:20] LABS: BASOPHILS % (AUTO) 0 % (0-1); EOSINOPHILS % (AUTO) 1 % (1-7); LYMPHOCYTES % (AUTO) 15 % (22-44); MD NO; MEAN CORPUSCULAR HEMOGLOBIN 32.1 pg (27.0-34.8); MEAN CORPUSCULAR HGB CONC 32.9 g/dL (32.4-35.8); MEAN PLATELET VOLUME 7.6 fL (7.4-10.4); MONOCYTES % (AUTO) 8 % (2-9); NEUTROPHILS % (AUTO) 77 % (42-75); PLATELET COUNT 163 x10^3/uL (130-400); RED BLOOD COUNT 3.23 x10^6/uL (3.82-5.3); RED CELL DISTRIBUTION WIDTH 13.9 % (9.6-15.2)
[2019-12-26] MEDS ORDERED: KETOROLAC 30 MG/1 ML IVPush PRN (13:00)
[2019-12-26 13:58] VITALS: BP 118/79
[2019-12-26] MEDS: CEFTRIAXONE PMX 2GM/50ML 50 ML IVPB SCH (15:53)
[2019-12-26] MEDS: ONDANSETRON 2MG/ML, 2ML IVPush PRN (17:38)
[2019-12-26 18:56] VITALS: BP 125/78
[2019-12-26] MEDS: SENNA/DOCUSATE TABLET PO SCH (20:18)
[2019-12-27 01:26] VITALS: BP 120/62
[2019-12-27] MEDS: ONDANSETRON 2MG/ML, 2ML IVPush PRN (01:35)
[2019-12-27] MEDS: ACETAMINOPHEN 325 MG TABLET PO PRN ×2 (01:46→12:11)
[2019-12-27] MEDS: HEPARIN 5,000 UNITS/ML, 1ML SQ SCH ×3 (06:14→22:23)
[2019-12-27] MEDS: SODIUM CHLORIDE 0.9% 1,000 ML IV SCH (06:14)
[2019-12-27 07:10] VITALS: BP 118/63
[2019-12-27 12:25] VITALS: BP 115/71
[2019-12-27] MEDS ORDERED: SODIUM CHLORIDE 0.9% 1,000 ML IV SCH (13:30)
[2019-12-27] MEDS: CEFTRIAXONE PMX 2GM/50ML 50 ML IVPB SCH ×2 (15:16→20:46)
[2019-12-27 19:26] VITALS: BP 127/83
[2019-12-27] MEDS: CALCIUM/VITAMIN D3 250-125 TABLET PO SCH (20:46)
[2019-12-27] MEDS: SENNA/DOCUSATE TABLET PO SCH (20:46)
[2019-12-28 01:31] VITALS: BP 129/68
[2019-12-28 06:15] LABS: ALBUMIN 2.5 g/dL (3.4-5.0); ANION GAP 4 mmol/L (5-15); CALCIUM 8.6 mg/dL (8.5-10.1); CHLORIDE 106 mmol/L (98-107)
[2019-12-28] MEDS: HEPARIN 5,000 UNITS/ML, 1ML SQ SCH ×3 (06:23→21:53)
[2019-12-28 06:25] LABS: ALANINE AMINOTRANSFERASE 44 U/L (12-78); ALKALINE PHOSPHATASE 124 U/L (45-117); BILIRUBIN,TOTAL 0.5 mg/dL (0.2-1.0); CREATININE 0.52 mg/dL (0.55-1.02); TOTAL PROTEIN 6.5 g/dL (6.4-8.2)
[2019-12-28 07:29] VITALS: BP_SYST 111; BP_SYST 129; BP_DIAS 68; BP_DIAS 69
[2019-12-28] MEDS: CALCIUM/VITAMIN D3 250-125 TABLET PO SCH ×2 (08:10→21:36)
[2019-12-28 15:06] VITALS: BP 108/66
[2019-12-28 15:20] LABS: ANA SCREEN NEGATIVE (Negative)
[2019-12-28 19:00] VITALS: BP 119/74
[2019-12-28] MEDS: SENNA/DOCUSATE TABLET PO SCH (21:36)
[2019-12-28] MEDS: CEFTRIAXONE PMX 2GM/50ML 50 ML IVPB SCH (21:36)
[2019-12-28] MEDS: ACETAMINOPHEN 325 MG TABLET PO PRN (21:54)
[2019-12-29 00:58] VITALS: BP 109/58
[2019-12-29 05:56] VITALS: BP 109/55
[2019-12-29] MEDS: ACETAMINOPHEN 325 MG TABLET PO PRN (06:03)
[2019-12-29] MEDS: HEPARIN 5,000 UNITS/ML, 1ML SQ SCH ×2 (06:03→14:00)
[2019-12-29 08:41] VITALS: BP 114/66
[2019-12-29] MEDS: CALCIUM/VITAMIN D3 250-125 TABLET PO SCH (09:30)
[2019-12-29 12:15] VITALS: BP 91/53
[2019-12-29] MEDS ORDERED: CALC1TAB68 PO (14:04)
[2019-12-29] MEDS ORDERED: CEFD300C37 PO (14:04)
[2019-12-29] MEDS ORDERED: ACET325T26 PO (14:04)
== END 2019-12-29 17:47 | disposition home health service (06) | DRG 872 ==
LOC: ED 22:45 → EDIP 12-24 01:07 → 3N 12-24 01:49
PROVIDERS: ADMIT Family Medicine; ATTEND Internal Medicine
DX: A41.9 Sepsis, unspecified organism (principal); L97.309 Non-pressure chronic ulcer of unspecified ankle with unspecified severity; L03.116 Cellulitis of left lower limb; B96.1 Klebsiella pneumoniae [K. pneumoniae] as the cause of diseases classified elsewhere; E66.01 Morbid (severe) obesity due to excess calories; E83.51 Hypocalcemia; E87.6 Hypokalemia; I87.2 Venous insufficiency (chronic) (peripheral); K59.00 Constipation, unspecified; Z87.11 Personal history of peptic ulcer disease; Z68.39 Body mass index [BMI] 39.0-39.9, adult
CPT/HCPCS: 36415; 71045; 80048; 80053; 82330; 83036; 83605; 83735; 84145; 84439; 84443; 84481; 85025; 85651; 86038; 86140; 86430; 86480; 87040; 87070; 87077; 87186; 87205; 87340; 90732; 93922; G0378; J0295; J0696; J0712; J1644; J1885; J2405; J3370; J2270; J7030; J7050

== ENCOUNTER → 2020-01-07 | Outpatient (CLI) | payer OTHER ==
[~2020-01-07] MED LIST changes: +ACET325T14 PO; +ACET325T26 PO; +CALC1TAB68 PO; +CEFD300C37 PO
== END | disposition home or self-care (01) ==
LOC: WOUND 08:25
PROVIDERS: ATTEND Internal Medicine
DX: I83.028 Varicose veins of left lower extremity with ulcer other part of lower leg (principal); L97.821 Non-pressure chronic ulcer of other part of left lower leg limited to breakdown of skin; I83.022 Varicose veins of left lower extremity with ulcer of calf; L97.222 Non-pressure chronic ulcer of left calf with fat layer exposed; I87.2 Venous insufficiency (chronic) (peripheral); L03.116 Cellulitis of left lower limb; I10 Essential (primary) hypertension; E66.01 Morbid (severe) obesity due to excess calories; Z68.39 Body mass index [BMI] 39.0-39.9, adult
CPT/HCPCS: 97597; 99215

== ENCOUNTER 2020-01-21 09:16 | Outpatient (CLI) | payer OTHER | END 2020-01-21 23:59 | disposition home or self-care (01) | LOC: WOUND 09:16 | PROVIDERS: ATTEND Internal Medicine | DX: I83.023 Varicose veins of left lower extremity with ulcer of ankle (principal); L97.322 Non-pressure chronic ulcer of left ankle with fat layer exposed; I83.022 Varicose veins of left lower extremity with ulcer of calf; L97.222 Non-pressure chronic ulcer of left calf with fat layer exposed; L03.116 Cellulitis of left lower limb; I10 Essential (primary) hypertension; E66.01 Morbid (severe) obesity due to excess calories; Z68.32 Body mass index [BMI] 32.0-32.9, adult | CPT/HCPCS: 97597 ==

== ENCOUNTER → 2020-02-03 | Outpatient (CLI) | payer OTHER | END | disposition home or self-care (01) | LOC: WOUND 09:03 | PROVIDERS: ATTEND Podiatrist Foot & Ankle Surgery | DX: I83.028 Varicose veins of left lower extremity with ulcer other part of lower leg (principal); L97.822 Non-pressure chronic ulcer of other part of left lower leg with fat layer exposed; I83.022 Varicose veins of left lower extremity with ulcer of calf; L97.221 Non-pressure chronic ulcer of left calf limited to breakdown of skin; L03.116 Cellulitis of left lower limb; I87.2 Venous insufficiency (chronic) (peripheral); I10 Essential (primary) hypertension; E66.01 Morbid (severe) obesity due to excess calories; Z68.32 Body mass index [BMI] 32.0-32.9, adult | CPT/HCPCS: 97597 ==

== ENCOUNTER → 2020-02-25 | Outpatient (CLI) | payer OTHER | END | disposition home or self-care (01) | LOC: CVU 12:52 | PROVIDERS: ATTEND Internal Medicine | DX: I83.93 Asymptomatic varicose veins of bilateral lower extremities (principal); L97.221 Non-pressure chronic ulcer of left calf limited to breakdown of skin | CPT/HCPCS: 93925; 93970 ==

== ENCOUNTER → 2020-03-03 | Outpatient (CLI) | payer OTHER | END | disposition home or self-care (01) | LOC: WOUND 07:50 | PROVIDERS: ATTEND Internal Medicine | DX: I83.028 Varicose veins of left lower extremity with ulcer other part of lower leg (principal); L97.328 Non-pressure chronic ulcer of left ankle with other specified severity; I83.022 Varicose veins of left lower extremity with ulcer of calf; L97.221 Non-pressure chronic ulcer of left calf limited to breakdown of skin; L03.116 Cellulitis of left lower limb; I10 Essential (primary) hypertension; E66.01 Morbid (severe) obesity due to excess calories; Z68.32 Body mass index [BMI] 32.0-32.9, adult | CPT/HCPCS: 99213 ==

== ENCOUNTER 2020-10-14 07:26 | Inpatient (IN) | payer OTHER ==
[~2020-10-14] VITALS: Ht 157.5 cm; Wt 88.9 kg
--- NOTE | 2020-10-14 07:47 | NUR ---
trimming caser note: Pt to room from lobby.
[2020-10-14] MEDS ORDERED: ACETAMINOPHEN 500 MG TABLET ONE (08:15)
[2020-10-14] MEDS ORDERED: ONDANSETRON 2MG/ML, 2ML ONE (08:15)
[2020-10-14] MEDS ORDERED: SODIUM CHLORIDE FLUSH 10ML SYR IVF ONE (08:30)
[2020-10-14] MEDS ORDERED: ONDANSETRON 2MG/ML, 2ML IVPush ONE (08:30)
[2020-10-14] MEDS ORDERED: ACETAMINOPHEN 500 MG TABLET PO ONE (08:30)
[2020-10-14 09:01] LABS: BASOPHILS % (AUTO) 0 % (0-1); EOSINOPHILS % (AUTO) 0 % (1-7); LYMPHOCYTES % (AUTO) 16 % (22-44); MEAN CORPUSCULAR HGB CONC 33.9 g/dL (32.4-35.8); MEAN PLATELET VOLUME 7.2 fL (7.4-10.4); MONOCYTES % (AUTO) 9 % (2-9); NEUTROPHILS % (AUTO) 75 % (42-75); PLATELET COUNT 173 x10^3/uL (130-400); RED BLOOD COUNT 4.29 x10^6/uL (3.82-5.3); RED CELL DISTRIBUTION WIDTH 14.2 % (9.6-15.2)
[2020-10-14 09:13] LABS: ALBUMIN 3.4 g/dL (3.4-5.0); ANION GAP 11 mmol/L (5-15); CALCIUM 8.4 mg/dL (8.5-10.1); CHLORIDE 97 mmol/L (98-107)
[2020-10-14 09:17] LABS: ALANINE AMINOTRANSFERASE 34 U/L (12-78); ALKALINE PHOSPHATASE 51 U/L (45-117); BILIRUBIN,TOTAL 0.6 mg/dL (0.2-1.0); CREATININE 0.67 mg/dL (0.55-1.02); TOTAL PROTEIN 7.9 g/dL (6.4-8.2)
--- NOTE | 2020-10-14 09:29 | NUR ---
IV STARTED MEDS PER ORDERS GIVEN PT ASLEEP DURING MOST TRIPS TO THE ROOM
[2020-10-14] MEDS ORDERED: OMNIPAQUE 350 MG/ML, 100ML BOTTLE ONE (09:30)
[2020-10-14 11:25] LABS: MICROSCOPIC AUTO
[2020-10-14] MEDS ORDERED: DEXAMETHASONE 4 MG/ML, 1ML IVPush ONE (11:30)
[2020-10-14] MEDS ORDERED: METOCLOPRAMIDE 5 MG/ML, 2ML IVPush PRN (12:00)
[2020-10-14] MEDS ORDERED: POLYETHYLENE GLYCOL 17 GM PACKET PO PRN (12:00)
[2020-10-14] MEDS ORDERED: ENALAPRILAT 1.25 MG/ML, 2ML IVPush PRN (12:00)
[2020-10-14] MEDS ORDERED: TRAZODONE 50MG TABLET PO PRN (12:00)
[2020-10-14] MEDS ORDERED: DOCUSATE 100 MG CAPSULE PO PRN (12:00)
[2020-10-14] MEDS ORDERED: ACETAMINOPHEN 325 MG TABLET PO PRN (12:00)
[2020-10-14] MEDS ORDERED: LABETALOL 5MG/ML, 20ML IVPush PRN (12:00)
[2020-10-14] MEDS ORDERED: BISACODYL 10 MG SUPP PR PRN (12:00)
[2020-10-14] MEDS ORDERED: ONDANSETRON ODT 4 MG PO PRN (12:00)
[2020-10-14] MEDS ORDERED: KETOROLAC 30 MG/1 ML IV PRN (12:00)
[2020-10-14] MEDS ORDERED: PROMETHAZINE 25 MG/ML, 1ML IM PRN (12:00)
[2020-10-14] MEDS ORDERED: PHARMACY MAY ADJ FOR RENAL FX MC PRN (12:00)
[2020-10-14] MEDS ORDERED: ONDANSETRON 2MG/ML, 2ML IVPush PRN (12:00)
[2020-10-14] MEDS ORDERED: hydrALAzine 20 MG/ML, 1ML IVPush PRN (12:00)
[2020-10-14] MEDS ORDERED: morphine SULFATE 10 MG/ML, 1ML IVPush PRN (12:00)
[2020-10-14] MEDS ORDERED: MAALOX/HYOSCYAMINE/LIDOCAINE 45 ML BTL PO ONE (12:30)
--- NOTE | 2020-10-14 12:31 | NUR ---
RAE RN: REPORT TO PATRICK, PLAN OF CARE DISCUSSED.
[2020-10-14] MEDS ORDERED: CEFTRIAXONE 1,000 MG IM ONE (12:51)
[2020-10-14] MEDS: ENOXAPARIN 40 MG/0.4 ML SQ SCH (14:53)
[2020-10-14] MEDS ORDERED: CEFTRIAXONE 1,000 MG in DEXTROSE 5% 50 ML IVPB ONE (15:00)
[2020-10-14 15:06] VITALS: BP 103/62
[2020-10-14] MEDS: GUAIFENESIN/DM 200-20MG, 10ML UDC PO PRN (17:53)
[2020-10-14 20:04] VITALS: BP 107/68
[2020-10-14] MEDS: FAMOTIDINE 20 MG TABLET PO SCH (20:07)
[2020-10-14] MEDS: ASCORBIC ACID 500 MG TABLET PO SCH (20:07)
[2020-10-15 03:19] VITALS: BP 121/73
[2020-10-15 06:25] LABS: BASOPHILS % (AUTO) 0 % (0-1); EOSINOPHILS % (AUTO) 0 % (1-7); LYMPHOCYTES % (AUTO) 18 % (22-44); MEAN CORPUSCULAR HEMOGLOBIN 31.4 pg (27.0-34.8); MEAN CORPUSCULAR HGB CONC 32.9 g/dL (32.4-35.8); MEAN PLATELET VOLUME 7.3 fL (7.4-10.4); MONOCYTES % (AUTO) 10 % (2-9); NEUTROPHILS % (AUTO) 72 % (42-75); PLATELET COUNT 169 x10^3/uL (130-400); RED BLOOD COUNT 4.48 x10^6/uL (3.82-5.3); RED CELL DISTRIBUTION WIDTH 13.8 % (9.6-15.2)
[2020-10-15 06:30] LABS: ANION GAP 7 mmol/L (5-15); CALCIUM 8.4 mg/dL (8.5-10.1); CHLORIDE 99 mmol/L (98-107)
[2020-10-15 06:31] LABS: CREATININE 0.54 mg/dL (0.55-1.02)
[2020-10-15] MEDS: CEFTRIAXONE 1,000 MG in DEXTROSE 5% 50 ML IVPB SCH (06:43)
[2020-10-15 08:12] VITALS: BP 120/70
[2020-10-15] MEDS ORDERED: ZINC SULFATE 220 MG CAPSULE PO SCH (09:00)
[2020-10-15] MEDS ORDERED: DEXAMETHASONE 4 MG TABLET PO ONE (09:00)
[2020-10-15] MEDS: FAMOTIDINE 20 MG TABLET PO SCH ×2 (09:09→20:21)
[2020-10-15] MEDS: ASCORBIC ACID 500 MG TABLET PO SCH ×2 (09:20→20:21)
[2020-10-15 13:26] VITALS: BP 121/67
[2020-10-15] MEDS: ENOXAPARIN 40 MG/0.4 ML SQ SCH (14:57)
[2020-10-15 20:45] VITALS: BP 117/69
[2020-10-16] MEDS: GUAIFENESIN/DM 200-20MG, 10ML UDC PO PRN ×2 (01:22→09:19)
[2020-10-16 01:23] VITALS: BP 104/64
[2020-10-16 08:38] VITALS: BP 113/97
[2020-10-16] MEDS ORDERED: DEXAMETHASONE 4 MG/ML, 1ML IVPush ONE (09:00)
[2020-10-16] MEDS: ASCORBIC ACID 500 MG TABLET PO SCH ×2 (09:04→19:56)
[2020-10-16] MEDS: DOXYCYCLINE 100MG TABLET PO SCH ×2 (09:19→19:56)
[2020-10-16] MEDS: ZINC SULFATE 220 MG CAPSULE PO SCH (11:03)
[2020-10-16] MEDS: ENOXAPARIN 40 MG/0.4 ML SQ SCH (14:20)
[2020-10-16] MEDS: CEFTRIAXONE 1,000 MG in DEXTROSE 5% 50 ML IVPB SCH ×3 (14:30→14:38)
[2020-10-16 16:42] VITALS: BP 116/54
[2020-10-16 19:34] VITALS: BP 113/61
[2020-10-16] MEDS: FAMOTIDINE 20 MG TABLET PO SCH (19:56)
[2020-10-17 00:10] VITALS: BP 115/64
[2020-10-17] MEDS: GUAIFENESIN/DM 200-20MG, 10ML UDC PO PRN ×2 (05:44→11:58)
[2020-10-17 06:30] LABS: BASOPHILS % (AUTO) 0 % (0-1); EOSINOPHILS % (AUTO) 0 % (1-7); LYMPHOCYTES % (AUTO) 20 % (22-44); MEAN CORPUSCULAR HEMOGLOBIN 32.2 pg (27.0-34.8); MEAN CORPUSCULAR HGB CONC 33.6 g/dL (32.4-35.8); MEAN PLATELET VOLUME 7.5 fL (7.4-10.4); MONOCYTES % (AUTO) 3 % (2-9); NEUTROPHILS % (AUTO) 76 % (42-75); PLATELET COUNT 180 x10^3/uL (130-400); RED BLOOD COUNT 4.52 x10^6/uL (3.82-5.3)
[2020-10-17] MEDS: ASCORBIC ACID 500 MG TABLET PO SCH ×2 (09:12→20:48)
[2020-10-17] MEDS: DOXYCYCLINE 100MG TABLET PO SCH ×2 (09:12→20:48)
[2020-10-17 09:15] VITALS: BP 92/58
[2020-10-17 10:22] LABS: ALANINE AMINOTRANSFERASE 30 U/L (12-78); ANION GAP 8 mmol/L (5-15); CALCIUM 8.3 mg/dL (8.5-10.1); CHLORIDE 98 mmol/L (98-107); CREATININE 0.74 mg/dL (0.55-1.02)
[2020-10-17 10:24] LABS: ALKALINE PHOSPHATASE 59 U/L (45-117); BILIRUBIN,TOTAL 0.4 mg/dL (0.2-1.0); TOTAL PROTEIN 8.1 g/dL (6.4-8.2)
[2020-10-17] MEDS: ZINC SULFATE 220 MG CAPSULE PO SCH (11:58)
[2020-10-17 13:40] VITALS: BP 105/64
[2020-10-17] MEDS: CEFTRIAXONE 1,000 MG in DEXTROSE 5% 50 ML IVPB SCH (15:46)
[2020-10-17] MEDS: ENOXAPARIN 40 MG/0.4 ML SQ SCH (15:47)
[2020-10-17 20:40] VITALS: BP 109/74
[2020-10-17] MEDS: FAMOTIDINE 20 MG TABLET PO SCH (20:48)
[2020-10-18 03:01] VITALS: BP 107/57
[2020-10-18] MEDS ORDERED: ZINC220C8 PO (06:14)
[2020-10-18] MEDS ORDERED: ASCO500T9 PO (06:14)
[2020-10-18 08:19] VITALS: BP 105/56
[2020-10-18] MEDS ORDERED: BENZ100C PO (08:50)
[2020-10-18] MEDS ORDERED: ALBU90AE INH (08:50)
[2020-10-18] MEDS: ASCORBIC ACID 500 MG TABLET PO SCH (09:13)
[2020-10-18] MEDS: DOXYCYCLINE 100MG TABLET PO SCH (09:13)
== END 2020-10-18 13:34 | disposition home or self-care (01) | DRG 193 ==
LOC: ED 12:00 → EDIP 12:26 → 3N 13:01
PROVIDERS: ADMIT Hospitalist; ATTEND Family Medicine
DX: J12.9 Viral pneumonia, unspecified (principal); J96.01 Acute respiratory failure with hypoxia; N39.0 Urinary tract infection, site not specified; E87.1 Hypo-osmolality and hyponatremia; E66.9 Obesity, unspecified; R03.0 Elevated blood-pressure reading, without diagnosis of hypertension; Z68.35 Body mass index [BMI] 35.0-35.9, adult
CPT/HCPCS: 36415; 71045; 71250; 74177; 80048; 80053; 81001; 83690; 85025; 87040; 87086; 96372; 96374; 96375; 99285; G0378; J0696; J1100; J1650; J2405; Q9967; U0005; U0003